=== PATIENT | male | born 1960 | race Caucasian/White ===

== ENCOUNTER 2018-06-12 15:38 | Inpatient (IN) ==
--- NOTE | 2018-06-12 16:51 | Emergency Department Note ---
Disposition Clinical Impression: Urinary retention, Paresthesia Leg weakness Qualifiers: Laterality: bilateral Qualified Code(s): R29.898 - Other symptoms and signs involving the musculoskeletal system Disposition: Still a Patient Referrals: Richi Vergara MD [Family Provider] - Sadia Strong CNP [Primary Care Provider] - Forms: ED Satisfaction Letter General Adult HPI - General Chief complaint: ED Dizziness Stated complaint: Unable to walk very well,frequent falls Time Seen by Provider: 06/12/18 16:02 Source: patient Mode of arrival: EMS Limitations: physical limitation Nursing Notes Reviewed: Yes Vital Signs Reviewed: Yes - History of Present Illness HPI Narrative: Patient is a 58-year-old male who presents to [facility] ED with a chief complaint of lower extremity weakness worsening over the last 2 weeks. Patient states he previously had a right-sided headache that would radiate down his neck and into her shoulder blade on the right. States he was evaluated by neurology last month and had an MRI of the head performed which was unremarkable. However over the last few weeks, his legs have started to feel more heavy and he has been very weak and unsteady with walking. States he feels like his legs are extremely heavy almost as if he is unable to lift them anymore. He has also described a change in his sensation in the saddle region as well as in his feet. States over the last 2 days, he has also had some urinary retention like he wants to go urinate but is unable to and when he does , he cannot get it fully out. Patient denies ever having any back pain. However when questioned about whether or not he leans forward on shopping carts in order to decrease the pressure in his back, he states that he does that all the time. States he has also had intermittent issues with pain in the hips and occasional shooting pain down the back of his right leg. Patient states 2 years ago, he did have one traumatic incident where he had a fracture in his spine. However no recent trauma. Onset (ago): week(s) (2) Location: lower extremity Pain Scale: 9 Quality: other (heavy) Consistency: constant, Worsening Improves with: nothing Worsens with: nothing Associated symptoms: Reports: headaches, weakness. Denies: chest pain, cough, fever/chills, nausea/vomiting Treatments Prior to Arrival: none - Related Data Allergies Allergy/AdvReac Type Severity Reaction Status Date / Time No Known Allergies Allergy Verified 06/12/18 15:52 All systems ED: reviewed and negative except as stated. Past Medical History - Past Medical History Attestation: Yes The following information was validated with the patient. Source: patient Medical history: Reports: diabetes, hypertension Psychiatric history: Reports: no psych history - Social History Smoking Status: Never smoker Smokeless Tobacco Status: No Alcohol use: Reports: none Drug use: Reports: none Physical Exam - General Limitations: physical limitation General appearance: alert, in no apparent distress - Head Head exam: atraumatic, normocephalic, normal inspection - Eye Eye exam: Present: EOMI - ENT ENT exam: normal exam, normal oropharynx, mucous membranes moist - Neck Neck exam: Present: normal inspection, full ROM, trachea midline - Chest Chest inspection: Present: normal inspection, symmetric chest wall rise - Respiratory Respiratory exam: Present: normal lung sounds bilaterally - Cardiovascular Cardiovascular exam: Present: regular rate, normal rhythm - Abdominal Exam Abdominal exam: Present: soft, Non-Tender. Absent: tenderness, distention, guarding, rebound, rigidity - Extremities Exam Extremities exam: Present: normal inspection, full ROM. Absent: tenderness, pedal edema - Back Exam Back exam: Present: normal inspection, paraspinal tenderness (upper thoracic R trapezius). Absent: vertebral tenderness - Neurological Exam Neurological exam: Present: alert, oriented X3, CN II-XII intact - Expanded Neurological Exam Patient oriented to: Present: person, place, time Speech: Present: fluid speech Motor strength - LUE: 3/5 Motor strength - RUE: 3/5 Motor strength - LLE: 3/5 Motor strength - RLE: 3/5 Sensory exam upper extremity: light touch: Normal Sensory exam lower extremity: light touch: Abnormal Left, Abnormal Right ( saddle distribution) Spinal cord function: Present: saddle anesthesia Coma Scale Eye Opening: Spontaneous Coma Scale Motor Response: Obeys Commands Coma Scale Verbal Response: Oriented Coma Scale Total: 15 - Psychiatric Psychiatric exam: Present: normal affect, normal mood - Skin Skin exam: Present: warm, dry, intact, normal color Course Course Narrative: Patient seen and examined. Lower extremity weakness of the last 2 weeks with difficulty walking. Upon my examination, he does have extreme weakness of his lower extremities. Also has saddle anesthesia. Described difficulty with urinating that started last night. Concern for spinal cord compression/ cervical myelopathy. Per Dr. Escobar, would like MRI of the cervical, thoracic, lumbar spine performed. These of been ordered. We will also get basic lab work if patient needs to go to the operating room. - Reevaluation(s) Reevaluation #1: Patient pending MRIs. Signed out to night physicians Dr. Weems and Dr. Abraham. Time: 19:00 Vital Signs Temperature 98.1 F 06/12/18 15:49 Pulse Rate 89 06/12/18 15:49 Respiratory Rate 16 06/12/18 15:49 Blood Pressure 151/91 06/12/18 15:49 O2 Sat by Pulse Oximetry 97 06/12/18 15:49 Temperature 98.1 F 06/12/18 15:56 Pulse Rate 88 06/12/18 19:42 Respiratory Rate 15 06/12/18 19:42 Blood Pressure 152/100 06/12/18 19:42 O2 Sat by Pulse Oximetry 98 06/12/18 19:42 Oxygen Delivery Oxygen Delivery Room Air Medical Decision Making - Medical Records Medical records reviewed: Yes I reviewed the patient's medical records. - Lab Data Lab results reviewed: Yes I reviewed the patient's lab results. Result diagrams: 06/12/18 16:44 06/12/18 16:44 Lab Results 06/12/18 06/12/18 06/12/18 Range/Units 16:44 16:44 16:44 WBC 8.6 (4.3-11.1) K/mcL RBC 4.78 (4.19-5.50) M/mcL Hgb 15.3 (12.9-16.9) g/dL Hct 44.6 (37.5-50.1) % MCV 93.3 (83.0-100.0) fL MCH 32.0 (28.0-33.3) pg MCHC 34.3 (31.6-35.5) g/dL RDW 12.1 (11.5-14.5) % Plt Count 258 (140-400) K/mcL MPV 9.7 (9.4-12.4) fL Immature Gran % 0.4 (0-4) % Seg Neutrophils % 69.7 % Lymphocytes % 20.7 % Monocytes % 7.1 % Eosinophils % 1.9 % Basophils % 0.2 % Neutrophils # 6.0 (1.6-8.9) K/mcL Lymphocytes # 1.8 (0.6-4.6) K/mcL Monocytes # 0.6 (0.0-1.3) K/mcL Eosinophils # 0.2 (0.0-0.6) K/mcL Basophils # 0.0 (0.0-0.2) K/mcL PT 11.2 (9.4-12.1) Seconds INR 1.0 APTT 27.3 (26.0-36.0) Seconds Sodium 138 (136-145) mEq/L Potassium 3.8 (3.5-5.1) mEq/L Chloride 104 (98-107) mEq/L Carbon Dioxide 29 (23-29) mEq/L BUN 11 (6-20) mg/dL Creatinine 0.84 (0.70-1.30) mg/dL Est GFR ( Amer) > 60 (> 60) Est GFR (Non-Af Amer) > 60 (> 60) BUN/Creatinine Ratio 13 (6-26) Glucose 162 H (70-105) mg/dL Calculated Osmolality 289 (280-300) Calcium 10.0 (8.6-10.3) mg/dL
--- NOTE | 2018-06-12 16:52 | Emergency Department Note ---
Disposition Clinical Impression: Leg weakness, Urinary retention, Paresthesia Disposition: Still a Patient Referrals: Richi Vergara MD [Family Provider] - Sadia Strong CNP [Primary Care Provider] - Forms: ED Satisfaction Letter General Adult HPI - General Chief complaint: ED Dizziness Stated complaint: Unable to walk very well,frequent falls Time Seen by Provider: 06/12/18 16:02 Source: patient Limitations: physical limitation - History of Present Illness Pain Scale: 9 - Related Data Allergies Allergy/AdvReac Type Severity Reaction Status Date / Time No Known Allergies Allergy Verified 06/12/18 15:52 Past Medical History - Past Medical History Medical history: Reports: diabetes, hypertension Psychiatric history: Reports: no psych history - Social History Smoking Status: Never smoker Smokeless Tobacco Status: No Alcohol use: Reports: none Drug use: Reports: none Physical Exam - General Limitations: physical limitation General appearance: alert, in no apparent distress Course Vital Signs Temperature 98.1 F 06/12/18 15:49 Pulse Rate 89 06/12/18 15:49 Respiratory Rate 16 06/12/18 15:49 Blood Pressure 151/91 06/12/18 15:49 O2 Sat by Pulse Oximetry 97 06/12/18 15:49 Temperature 98.1 F 06/12/18 15:56 Pulse Rate 89 06/12/18 15:56 Respiratory Rate 16 06/12/18 15:56 Blood Pressure 151/91 06/12/18 15:56 O2 Sat by Pulse Oximetry 97 06/12/18 15:56 Oxygen Delivery Oxygen Delivery Room Air Medical Decision Making - Lab Data Result diagrams: 06/12/18 16:44 Lab Results 06/12/18 06/12/18 Range/Units 16:44 16:44 WBC 8.6 (4.3-11.1) K/mcL RBC 4.78 (4.19-5.50) M/mcL Hgb 15.3 (12.9-16.9) g/dL Hct 44.6 (37.5-50.1) % MCV 93.3 (83.0-100.0) fL MCH 32.0 (28.0-33.3) pg MCHC 34.3 (31.6-35.5) g/dL RDW 12.1 (11.5-14.5) % Plt Count 258 (140-400) K/mcL MPV 9.7 (9.4-12.4) fL Immature Gran % 0.4 (0-4) % Seg Neutrophils % 69.7 % Lymphocytes % 20.7 % Monocytes % 7.1 % Eosinophils % 1.9 % Basophils % 0.2 % Neutrophils # 6.0 (1.6-8.9) K/mcL Lymphocytes # 1.8 (0.6-4.6) K/mcL Monocytes # 0.6 (0.0-1.3) K/mcL Eosinophils # 0.2 (0.0-0.6) K/mcL Basophils # 0.0 (0.0-0.2) K/mcL PT 11.2 (9.4-12.1) Seconds INR 1.0 APTT 27.3 (26.0-36.0) Seconds Attestation Statement - Attestation Attestation: I examined this patient and my medical decision-making was reviewed with the Resident Physician. I agree with the documented findings, disposition and treatment plan as described except to the extent set forth below. 58-year-old male in presented to the ER for lower extremity weakness. States over 2 weeks he is developing increasing lower extremity weakness with some numbness around the perineal region specifically to the scrotal area back towards the rectum. He is also having some numbness feelings to the inner aspects of the thighs. He is also admitting to urinary retention. He is having problems with ambulation. He denies trauma. No fevers. He does not use IV drugs. Raymon November he was been having neck pain on the right side since November. No history of spinal problems in the past. We will need to do an MRI of the CT LS spine. Concerns for cord compression. dispo pending.
[2018-06-12 17:11] LABS: Basophils % 0.2 %; Eosinophils # 0.2 K/mcL (0.0-0.6); Eosinophils % 1.9 %; Hematocrit 44.6 % (37.5-50.1); Hemoglobin 15.3 g/dL (12.9-16.9); Immature Granulocytes % 0.4 % (0-4); Lymphocytes # 1.8 K/mcL (0.6-4.6); Lymphocytes % 20.7 %; Mean Corpuscular HGB Conc 34.3 g/dL (31.6-35.5); Mean Corpuscular Volume 93.3 fL (83.0-100.0); Mean Platelet Volume 9.7 fL (9.4-12.4); Monocytes # 0.6 K/mcL (0.0-1.3); Monocytes % 7.1 %; Platelet Count 258 K/mcL (140-400); Red Blood Count 4.78 M/mcL (4.19-5.50); Red Cell Distribution Width 12.1 % (11.5-14.5); Segmented Neutrophils % 69.7 %
[2018-06-12 17:17] LABS: Prothrombin Time 11.2 Seconds (9.4-12.1)
[2018-06-12 17:20] LABS: Activated Partial Thrombo Time 27.3 Seconds (26.0-36.0)
--- NOTE | 2018-06-12 19:15 | Emergency Department Note ---
Disposition Clinical Impression: Urinary retention, Paresthesia, Cord compression Leg weakness Qualifiers: Laterality: bilateral Qualified Code(s): R29.898 - Other symptoms and signs involving the musculoskeletal system Disposition: Admitted As Inpatient Condition: Good Referrals: Richi Vergara MD [Family Provider] - Sadia Strong CNP [Primary Care Provider] - Forms: ED Satisfaction Letter Time of Disposition: 21:39 General Adult HPI - General Chief complaint: ED Dizziness Stated complaint: Unable to walk very well,frequent falls Time Seen by Provider: 06/12/18 16:02 Source: patient Mode of arrival: EMS Limitations: physical limitation Nursing Notes Reviewed: Yes Vital Signs Reviewed: Yes - History of Present Illness HPI Narrative: Patient was signed out to me by Dr. Slade and Dr. Gilmore pending workup and final disposition. Please see their note for further details. Location: lower extremity Pain Scale: 9 Quality: other (heavy) Improves with: nothing Worsens with: nothing Associated symptoms: Reports: headaches, weakness. Denies: chest pain, cough, fever/chills, nausea/vomiting Treatments Prior to Arrival: none - Related Data Allergies Allergy/AdvReac Type Severity Reaction Status Date / Time No Known Allergies Allergy Verified 06/12/18 15:52 Past Medical History - Past Medical History Medical history: Reports: diabetes, hypertension Psychiatric history: Reports: no psych history - Social History Smoking Status: Never smoker Smokeless Tobacco Status: No Alcohol use: Reports: none Drug use: Reports: none Physical Exam - General Limitations: physical limitation General appearance: alert, in no apparent distress Course Course Narrative: Patient was signed out to me by Dr. Slade and Dr. Gilmore pending workup and final disposition. Please see their note for further details. Marc is a 58-year-old male who presents with lower extremity weakness worse over the past 2 weeks. He was sent here by his neurologist for MRI imaging. He describes heaviness in his legs and unable to lift them. She describes symptoms concerning for cauda equina including some anesthesia around the groin region and lower extremities. He is also complaining of urinary symptoms. MRI imaging was performed by daytime physicians including laboratory evaluation. Review of images of MRI does show some loss of signal of the spinal cord at T10 concerning for cord compression. Patient is experiencing symptoms concerning for cauda equina. On examination he has hyperreflexia on examination. Patient will likely require spine ortho referral. Cervical Spine MRI 06/12/18 16:41 IMPRESSION: Mild anterolisthesis at C7-T1. Mild central canal stenosis at C6-7 due to broad disc osteophyte complex. Both foramina are severely stenotic at this level. Moderate foraminal stenosis at C3-4 and C5-6. D/ / 06/12/2018 19:38:50 Bi Daley MD / [facility] Interpreting Provider: Bi Daley MD Lumbar Spine MRI 06/12/18 16:41 IMPRESSION: Old wedge deformity of the L1 vertebral body. Moderate central canal stenosis and right foraminal stenosis at L2-L3 due to broad disc osteophyte complex and facet disease. Moderate bilateral foraminal stenosis at L4-L5 greater on the right. There is fluid distension of both facet joints. Mild bilateral foraminal stenosis is noted at L3-L4. D/ / 06/12/2018 19:43:01 Bi Daley MD / [facility] Interpreting Provider: Bi Daley MD Thoracic Spine MRI 06/12/18 16:41 IMPRESSION: Severe central canal stenosis at T10-11 due to broad disc osteophyte complex, facet arthropathy and ligamentum flavum hypertrophy. Moderate diffuse degenerative disc disease within the thoracic spine without evidence of focal disc protrusion. D/ / 06/12/2018 19:30:36 [facility] Provider: Bi Daley MD - Consultations Consultation #1: Spoke to the neurologist Dr. Escobar who had refer the patient here. We review the images together and he agrees this is very concerning for cord compression. Time: 20:55 Consultation #2: Consulted with spine orthopedic surgeon Dr. Elliott who agrees with current management and assessment and agrees with admission. Will admit to the hospitalist service with consultation. Recommend preoperative lab evaluation prior to admission. Given the patient's progressively worsening symptoms this is not something acute. We discussed in detail no change neurologic outcome as long as decompression is performed within 48 to 72 hours. Does not recommend any current treatment such as steroids at this time. Time: 21:39 Consultation #3: Spoke with on-call hospitalist carla Patel to admit for cord compression. No further orders at this time. Patient has a history of hypertension and takes amlodipine. He also reports prescription for metformin but does not take it. Time: 21:59 Vital Signs Temperature 98.1 F 06/12/18 15:49 Pulse Rate 89 06/12/18 15:49 Respiratory Rate 16 06/12/18 15:49 Blood Pressure 151/91 06/12/18 15:49 O2 Sat by Pulse Oximetry 97 06/12/18 15:49 Temperature 98.1 F 06/12/18 15:56 Pulse Rate 89 06/12/18 22:00 Respiratory Rate 15 06/12/18 22:00 Blood Pressure 149/89 06/12/18 22:00 O2 Sat by Pulse Oximetry 98 06/12/18 22:00 Oxygen Delivery Oxygen Delivery Room Air Medical Decision Making - MDM Narrative Medical decision making narrative: Patient was discussed with my attending physician who agrees with ED management and final disposition. They independently evaluated the patient. Please refer to their attestation to this encounter for additional information. This note was generated by [employer] voice recognition software and as a result grammatical or spelling errors may occur using this program. - Medical Records Medical records reviewed: Yes I reviewed the patient's medical records. - Lab Data Lab results reviewed: Yes I reviewed the patient's lab results. Result diagrams: 06/12/18 16:44 06/12/18 16:44 Lab Results 06/12/18 06/12/18 06/12/18 Range/Units 16:44 16:44 16:44 WBC 8.6 (4.3-11.1) K/mcL RBC 4.78 (4.19-5.50) M/mcL Hgb 15.3 (12.9-16.9) g/dL Hct 44.6 (37.5-50.1) % MCV 93.3 (83.0-100.0) fL MCH 32.0 (28.0-33.3) pg MCHC 34.3 (31.6-35.5) g/dL RDW 12.1 (11.5-14.5) % Plt Count 258 (140-400) K/mcL MPV 9.7 (9.4-12.4) fL Immature Gran % 0.4 (0-4) % Seg Neutrophils % 69.7 % Lymphocytes % 20.7 % Monocytes % 7.1 % Eosinophils % 1.9 % Basophils % 0.2 % Neutrophils # 6.0 (1.6-8.9) K/mcL Lymphocytes # 1.8 (0.6-4.6) K/mcL Monocytes # 0.6 (0.0-1.3) K/mcL Eosinophils # 0.2 (0.0-0.6) K/mcL Basophils # 0.0 (0.0-0.2) K/mcL PT 11.2 (9.4-12.1) Seconds INR 1.0 APTT 27.3 (26.0-36.0) Seconds Sodium 138 (136-145) mEq/L Potassium 3.8 (3.5-5.1) mEq/L Chloride 104 (98-107) mEq/L Carbon Dioxide 29 (23-29) mEq/L BUN 11 (6-20) mg/dL Creatinine 0.84 (0.70-1.30) mg/dL Est GFR ( Amer) > 60 (> 60) Est GFR (Non-Af Amer) > 60 (> 60) BUN/Creatinine Ratio 13 (6-26) Glucose 162 H (70-105) mg/dL Calculated Osmolality 289 (280-300) Calcium 10.0 (8.6-10.3) mg/dL - Radiology Data Radiology results reviewed: Yes I reviewed the patient's radiology results. Cervical Spine MRI 06/12/18 16:41 IMPRESSION: Mild anterolisthesis at C7-T1. Mild central canal stenosis at C6-7 due to broad disc osteophyte complex. Both foramina are severely stenotic at this level. Moderate foraminal stenosis at C3-4 and C5-6. D/ / 06/12/2018 19:38:50 Bi Daley MD / [facility] Interpreting Provider: Bi Daley MD Lumbar Spine MRI 06/12/18 16:41 IMPRESSION: Old wedge deformity of the L1 vertebral body. Moderate central canal stenosis and right foraminal stenosis at L2-L3 due to broad disc osteophyte complex and facet disease. Moderate bilateral foraminal stenosis at L4-L5 greater on the right. There is fluid distension of both facet joints. Mild bilateral foraminal stenosis is noted at L3-L4. D/ / 06/12/2018 19:43:01 Bi Daley MD / [facility] Interpreting Provider: Bi Daley MD Thoracic Spine MRI 06/12/18 16:41 IMPRESSION: Severe central canal stenosis at T10-11 due to broad disc osteophyte complex, facet arthropathy and ligamentum flavum hypertrophy. Moderate diffuse degenerative disc disease within the thoracic spine without evidence of focal disc protrusion. D/ / 06/12/2018 19:30:36 Bi Daley MD / [facility] Interpreting Provider: Bi Daley MD - EKG Data EKG #1 EKG attestation: Yes I reviewed and interpreted this EKG. EKG results narrative: EKG performed 2200 normal sinus rhythm 84 beats per minute, normal axis, good R wave progression, intervals within normal limits, no ST elevation or depression. Compared to prior EKG performed 06/10/2007 shows similar consistent findings of sinus bradycardia 59 beats per minute.
[2018-06-12 19:32] LABS: BUN/Creatinine Ratio 13 (6-26); Blood Urea Nitrogen 11 mg/dL (6-20); Carbon Dioxide 29 mEq/L (23-29); Chloride 104 mEq/L (98-107); Glucose 162 mg/dL (70-105); Osmolality,Calculated 289 (280-300); Potassium 3.8 mEq/L (3.5-5.1); Sodium 138 mEq/L (136-145); eGFR For Non-African Americans > 60 (> 60)
[2018-06-12] MEDS ORDERED: *HR* HYDROcodone/Acet 10/325 mg TABLET PO ONE (22:00)
--- NOTE | 2018-06-12 22:56 | Emergency Department Note ---
Disposition Clinical Impression: Urinary retention, Paresthesia, Cord compression Leg weakness Qualifiers: Laterality: bilateral Qualified Code(s): R29.898 - Other symptoms and signs involving the musculoskeletal system Disposition: Admitted As Inpatient Condition: Fair General Adult HPI - General Chief complaint: ED Dizziness Stated complaint: Unable to walk very well,frequent falls Time Seen by Provider: 06/12/18 16:02 Source: patient Mode of arrival: EMS Limitations: physical limitation Nursing Notes Reviewed: Yes Vital Signs Reviewed: Yes - History of Present Illness Location: lower extremity Pain Scale: 9 Quality: other (heavy) Improves with: nothing Worsens with: nothing Associated symptoms: Reports: headaches, weakness. Denies: chest pain, cough, fever/chills, nausea/vomiting Treatments Prior to Arrival: none - Related Data Home Medications Medication Instructions Recorded Confirmed Amlodipine Besylate/Benazepril 1 cap PO DAILY 06/12/18 06/12/18 [Lotrel 10-20 mg Capsule] Cyclobenzaprine [Flexeril] 5 - 10 mg PO BID PRN 06/12/18 06/12/18 HYDROcodone/Acet 5/325 mg [[place] 1 tab PO Q8H PRN 06/12/18 06/12/18 5-325 mg] Loratadine [Claritin] 10 mg PO DAILY 06/12/18 06/12/18 Naproxen 500 mg PO BID 06/12/18 06/12/18 Allergies Allergy/AdvReac Type Severity Reaction Status Date / Time No Known Allergies Allergy Verified 06/12/18 22:20 Past Medical History - Past Medical History Medical history: Reports: diabetes, hypertension Psychiatric history: Reports: no psych history - Social History Smoking Status: Never smoker Smokeless Tobacco Status: No Alcohol use: Reports: none Drug use: Reports: none Physical Exam - General Limitations: physical limitation General appearance: alert, in no apparent distress Course Vital Signs Temperature 98.1 F 06/12/18 15:49 Pulse Rate 89 06/12/18 15:49 Respiratory Rate 16 06/12/18 15:49 Blood Pressure 151/91 06/12/18 15:49 O2 Sat by Pulse Oximetry 97 06/12/18 15:49 Temperature 98.1 F 06/12/18 15:56 Pulse Rate 89 06/12/18 22:00 Respiratory Rate 15 06/12/18 22:00 Blood Pressure 149/89 06/12/18 22:00 O2 Sat by Pulse Oximetry 98 06/12/18 22:00 Oxygen Delivery Oxygen Delivery Room Air Medical Decision Making - Medical Records Medical records reviewed: Yes I reviewed the patient's medical records. - Lab Data Lab results reviewed: Yes I reviewed the patient's lab results. Result diagrams: 06/12/18 16:44 06/12/18 16:44 Lab Results 06/12/18 06/12/18 06/12/18 Range/Units 16:44 16:44 16:44 WBC 8.6 (4.3-11.1) K/mcL RBC 4.78 (4.19-5.50) M/mcL Hgb 15.3 (12.9-16.9) g/dL Hct 44.6 (37.5-50.1) % MCV 93.3 (83.0-100.0) fL MCH 32.0 (28.0-33.3) pg MCHC 34.3 (31.6-35.5) g/dL RDW 12.1 (11.5-14.5) % Plt Count 258 (140-400) K/mcL MPV 9.7 (9.4-12.4) fL Immature Gran % 0.4 (0-4) % Seg Neutrophils % 69.7 % Lymphocytes % 20.7 % Monocytes % 7.1 % Eosinophils % 1.9 % Basophils % 0.2 % Neutrophils # 6.0 (1.6-8.9) K/mcL Lymphocytes # 1.8 (0.6-4.6) K/mcL Monocytes # 0.6 (0.0-1.3) K/mcL Eosinophils # 0.2 (0.0-0.6) K/mcL Basophils # 0.0 (0.0-0.2) K/mcL PT 11.2 (9.4-12.1) Seconds INR 1.0 APTT 27.3 (26.0-36.0) Seconds Sodium 138 (136-145) mEq/L Potassium 3.8 (3.5-5.1) mEq/L Chloride 104 (98-107) mEq/L Carbon Dioxide 29 (23-29) mEq/L BUN 11 (6-20) mg/dL Creatinine 0.84 (0.70-1.30) mg/dL Est GFR ( Amer) > 60 (> 60) Est GFR (Non-Af Amer) > 60 (> 60) BUN/Creatinine Ratio 13 (6-26) Glucose 162 H (70-105) mg/dL Calculated Osmolality 289 (280-300) Calcium 10.0 (8.6-10.3) mg/dL - Radiology Data Radiology results reviewed: Yes I reviewed the patient's radiology results. Cervical Spine MRI 06/12/18 16:41 IMPRESSION: Mild anterolisthesis at C7-T1. Mild central canal stenosis at C6-7 due to broad disc osteophyte complex. Both foramina are severely stenotic at this level. Moderate foraminal stenosis at C3-4 and C5-6. D/ / 06/12/2018 19:38:50 Bi Daley MD / [facility] Interpreting Provider: Bi Daley MD Lumbar Spine MRI 06/12/18 16:41 IMPRESSION: Old wedge deformity of the L1 vertebral body. Moderate central canal stenosis and right foraminal stenosis at L2-L3 due to broad disc osteophyte complex and facet disease. Moderate bilateral foraminal stenosis at L4-L5 greater on the right. There is fluid distension of both facet joints. Mild bilateral foraminal stenosis is noted at L3-L4. D/ / 06/12/2018 19:43:01 Bi Daley MD / [facility] Interpreting Provider: Bi Daley MD Thoracic Spine MRI 06/12/18 16:41 IMPRESSION: Severe central canal stenosis at T10-11 due to broad disc osteophyte complex, facet arthropathy and ligamentum flavum hypertrophy. Moderate diffuse degenerative disc disease within the thoracic spine without evidence of focal disc protrusion. D/ / 06/12/2018 19:30:36 Bi Daley MD / [facility] Interpreting Provider: Bi Daley MD Chest X-Ray 06/12/18 21:34 IMPRESSION: Normal. No acute findings. D/ / Fam Leal / Fam Leal Interpreting Provider: Fam Leal - EKG Data EKG #1 EKG attestation: Yes I reviewed and interpreted this EKG. EKG results narrative: EKG shows a normal sinus rhythm with ventricular rate of 84. No acute ST segment elevation or depression. No arrhythmia or ectopy. Normal EKG. Critical Care Time Critical Care Time: Yes Total Critical Care Time: 35 Attestation: Critical care performed: Time is exclusive of separately billable procedures. Time includes: direct patient care, patient reassessment, coordination of patient care, interpretation of data (laboratory data, radiology data, and respiratory data), review of patient's medical records, medical consultation and documentation of patient care. Procedures included in critical care time: Procedures excluded from critical care time: Attestation Statement - Attestation Attestation: I, Jorge Abraham MD, personally evaluated this patient and discussed their management with the resident physician. I reviewed the resident's note and agree with the documented findings, medical decision making, and plan of care. This patient was signed out at shift change from Dr. Gilmore and Dr. Slade. Please refer to their notes for complete details of history and physical examination. Patient is a 58-year-old male who was referred here from neurology clinic where he was being evaluated for increasing difficulty walking over the past several weeks. He denies any back pain or injury. He does complain of increasing numbness to the medial thighs and perineal area. He has had difficulty with urination and states his bladder is not emptying and he is going frequently. No incontinence or retention. No incontinence of stool. No fever. Patient states the symptoms are getting progressively worse daily. He was referred here for MR scans of his spine which were obtained and revealed severe central canal narrowing at T10-11. On examination patient is a well-developed obese male in no acute distress. He is alert and oriented 3. There is no cyanosis or diaphoresis. Breath sounds are clear and equal bilaterally. Heart regular rate and rhythm. Abdomen is soft and nontender with normal bowel sounds. Good range of motion of all 4 extremities with no gross focal motor deficits. Some decreased sensation over the medial thighs. Labs and imaging reviewed. EKG normal. Patient discussed with the neurologist, Dr. Escobar. He recommended admission. Case discussed with the spine surgeon, Dr. Elliott. He recommended admission to the medical service with preoperative workup will consult on the patient. He felt the patient would need surgery within the next few days. The hospitalist, Dr. Henao, was consulted and accepted admission of the patient.
[2018-06-13] MEDS ORDERED: Acetaminophen 325 MG TABLET PO PRN (03:04)
[2018-06-13] MEDS ORDERED: *HR* HYDROcodone/Acet 5/325 mg TABLET PO PRN (03:04)
[2018-06-13] MEDS ORDERED: Naloxone 0.4 MG/ML INJ IVP PRN (03:04)
[2018-06-13] MEDS: *HR* OxyCODONE Immed Rel 5 MG TABLET PO PRN ×3 (03:22→21:30)
--- NOTE | 2018-06-13 04:34 | Internal Med History&Physical ---
Date of Encounter: 06/12/18 Time of Encounter: 23:30 Internal Medicine - H&P: HPI Chief complaint: Spinal stenosis Admitted From: Emergency Dept Plans for Post Hospital Care: Home History of present illness: Mr. Irene is a 58 year old male Patient states that back in November he started having neck pain. At that time he was treated for multiple sinus infections but never improved. Around November of this year he noticed his right foot started to feel numb and it slowly progressed up his leg. Now he has numbness in both of his legs. He went to a neurologist today who advised him to come to the emergency room for further evaluation. Of note, he states he has had 4 falls over the last 5 days. He says that he feels like his knees will just give out and then he will go down. In the emergency room cervical MRI showed mild central canal stenosis at C6 and 7, with both foramina severely stenotic. His lumbar MRI showed moderate stenosis of the central canal L2-L3 due to broad disc complex and moderate stenosis of L4 and L5 greater on the right. His thoracic MRI showed severe central canal stenosis at T10 and 11. Chest x-ray showed no acute abnormalities CBC and BMP were noncontributory. Dr. Elliott of orthopedic surgery was called, and will consult on the patient in the morning. Currently patient has no complaints, denies nausea and vomiting, diarrhea, constipation, chest pain, dull pain, vision changes. He has had some urine retention likely feels like he cannot fully empty his bladder this been going on for about 1 week now. Past Med Surg Social Fam HX - Past Medical History Medical history: diabetes, hypertension Psychiatric history: no psych history - Past Surgical History Surgical History: knee replacement - Social History Smoking Status: Never smoker Smokeless Tobacco Status: No Alcohol use: none Drug use: none Internal Medicine - H&P: Meds Amlodipine Besylate/Benazepril [Lotrel 10-20 mg Capsule] 1 cap PO DAILY [History] Cyclobenzaprine [Flexeril] 5 - 10 mg PO BID PRN 06/12/18 [History] HYDROcodone/Acet 5/325 mg [[place] 5-325 mg] 1 tab PO Q8H PRN 06/12/18 [History] Loratadine [Claritin] 10 mg PO DAILY 06/12/18 [History] Naproxen 500 mg PO BID 06/12/18 [History] 3 Allergy/AdvReac Type Severity Reaction Status Date / Time No Known Allergies Allergy Verified 06/12/18 22:20 All Systems PM: A 10-system review of systems was performed and is negative for pertinent findings except as documented above in the HPI. - Constitutional Vitals: Temp Pulse Resp BP Pulse Ox 97.7 F 72 18 157/92 96 06/13/18 03:16 06/13/18 03:16 06/13/18 03:16 06/13/18 03:16 06/13/18 03:16 General appearance: Present: cooperative, A&O X 3, pleasant, no acute distress, answers questions appropriately Exam: As above - Head Head exam: Present: normal inspection - Eye Eye exam: Present: EOMI, normal appearance - Neck Additional comments: Stiffness with rotation. Palpation of the lower neck on the right demonstrated some tenderness. - Respiratory Respiratory exam: Present: CTAB. Absent: chest wall tenderness, decreased breath sounds, respiratory distress, wheezes - Cardiovascular Cardiovascular exam: Present: RRR. Absent: diastolic murmur, systolic murmur - GI/Abdominal GI/Abdominal exam: Present: normal bowel sounds, soft. Absent: tenderness - Extremities Exam Extremities exam: Present: warm, radial pulses palpable and symmetrical. Absent : calf tenderness, pedal edema, tenderness - Neurological Exam Neurological exam: Present: no focal deficits, strengths equal and symetr throughout. Absent: motor sensory deficit, facial droop, speech deficit - Skin Skin exam: Present: dry, normal color, warm Internal Med - H&P Results - Labs CBC & Chem 7: 06/12/18 16:44 06/12/18 16:44 - Assessment and plan (1) Cord compression Current Visit: Yes Status: Acute Assessment and plan: As evidenced by spinal MRIs. Dr. Elliott consulted of orthopedic spine surgery. Follow-up recommendations from Dr. Elliott Possible procedure during this hospitalization Continue to monitor for further worsening signs of paresthesia (2) Paresthesia Current Visit: Yes Status: Acute Assessment and plan: As above secondary to cord compression (3) Urinary retention Current Visit: Yes Status: Acute Assessment and plan: Could be related to cord compression, though urinary incontinence would be more suspected. To monitor Consider bladder scan and straight catheter if patient not voiding - Time Spent With Patient Total time spent is greater than 50% in coordination of care (as documented) at patient's floor/unit and/or counseling patient: Greater than 35 minutes
[2018-06-13 05:46] LABS: Hematocrit 43.3 % (37.5-50.1); Mean Corpuscular HGB Conc 34.6 g/dL (31.6-35.5); Mean Corpuscular Hemoglobin 32.8 pg (28.0-33.3); Mean Corpuscular Volume 94.5 fL (83.0-100.0); Mean Platelet Volume 9.9 fL (9.4-12.4); Platelet Count 239 K/mcL (140-400); Red Blood Count 4.58 M/mcL (4.19-5.50)
[2018-06-13 05:51] LABS: INR 1.1; Prothrombin Time 12.3 Seconds (9.4-12.1)
[2018-06-13 06:01] LABS: BUN/Creatinine Ratio 13 (6-26); Blood Urea Nitrogen 11 mg/dL (6-20); Calcium 9.5 mg/dL (8.6-10.3); Carbon Dioxide 27 mEq/L (23-29); Chloride 105 mEq/L (98-107); Glucose 151 mg/dL (70-105); Osmolality,Calculated 288 (280-300); Sodium 138 mEq/L (136-145); eGFR For Non-African Americans > 60 (> 60)
[2018-06-13] MEDS ORDERED: *HR* Labetalol 20 MG/4 ML SYRINGE IVP PRN (08:11)
--- NOTE | 2018-06-13 11:54 | Internal Med Progress Note ---
Hospitalist Progress Note - Encounter Date of Encounter: 06/13/18 Time of Encounter: 10:40 - Subjective Interval History: H&P reviewed. His symptoms in November with neck pain which progressed to lower limb weakness and numbness. MRI yesterday showed multilevel degenerative changes with severe spinal canal stenosis at T10-11. States that he was evaluated by spine surgeon this morning and is being planned for surgery tomorrow. - Exam Vitals: Temp Pulse Resp BP Pulse Ox 97.9 F 86 16 127/68 98 06/13/18 06:59 06/13/18 06:59 06/13/18 06:59 06/13/18 06:59 06/13/18 06:59 Exam: General: Alert and oriented, not in acute distress. HEENT:EOM, pupils equal, round and reactive. Cardiovascular:Normal S1 & S2, No JVD. Pulse regular. Lungs: clear to auscultation, no wheezes/rales Abdomen:Soft, non-tender, no rigidity. Extremities:No deformity or swelling Neurological: CN II-XII intact, subjective weakness of R LE but otherwise 5/5 in power in other limbs. Paresthesia over L2-4 dermatomes noted on R LE. - Assessment and Plan (1) Central stenosis of spinal canal Current Visit: Yes Status: Acute Assessment and Plan: MRI shows multilevel degenerative change with severe spinal canal stenosis at T10/11 patient states that he met with spine surgeon this AM and is being planned for op tomorrow. analgesics as prescribed (2) Diabetes Current Visit: Yes Status: Acute Assessment and Plan: not on meds at home, no A1c on file ADA diet accuchecks AC+HS Low dose sliding scale coverage check A1c tomorrow (3) Hypertension Current Visit: Yes Status: Acute Assessment and Plan: resume home meds PRN labetalol (4) DVT prophylaxis Current Visit: Yes Status: Acute Assessment and Plan: SCD - Time Spent with Patient Total time spent is greater than 50% in coordination of care (as documented) at patient's floor/unit and/or counseling patient: Plan of Care Discussed with: patient Internal Medicine: Result - Labs CBC & Chem 7: 06/13/18 05:27 06/13/18 05:27 Labs: Short CBC 06/13/18 Range/Units 05:27 WBC 7.2 (4.3-11.1) K/mcL Hgb 15.0 (12.9-16.9) g/dL Hct 43.3 (37.5-50.1) % Plt Count 239 (140-400) K/mcL BMP 06/13/18 05:27 Sodium 138 Potassium 4.0 Chloride 105 Carbon Dioxide 27 BUN 11 Creatinine 0.87 Glucose 151 H Calcium 9.5 - ABG Interpretation ABG results: PT/INR, D-dimer PT 12.3 Seconds (9.4-12.1) H 06/13/18 05:27 Consult Discharge Plan - Plan Referrals: Sadia Strong, QUALITY CONTROL REPRESENTATIVE [Primary Care Provider] - Vergara,Richi Gunderson MD [Family Provider] - (2) Diabetes Qualifiers: Diabetes mellitus type: type 2 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
[2018-06-13] MEDS ORDERED: D5% in Water 1,000 ML IVC PRN (11:56)
[2018-06-13] MEDS ORDERED: Dextrose Gel 15 GM/37.5 ML TUBE PO PRN ×2 (11:56)
[2018-06-13] MEDS ORDERED: *HR* Dextrose 50 % in Water (Syg) 50 ML SYRINGE IVP PRN (11:56)
[2018-06-13] MEDS ORDERED: NON-FORMULARY MEDICATION 1 EACH EACH (Amlodipine Besylate/Benazepril [Lotrel 10-20 Mg Caps PO SCH (11:57)
[2018-06-13] MEDS: Lisinopril 20 MG TABLET PO SCH (14:00)
[2018-06-13] MEDS: amLODIPine 5 MG TABLET PO SCH (14:00)
--- NOTE | 2018-06-13 15:47 | Electrocardiograph Report ---
[address] [address] Test Date: 2018-06-12 Pat Name: Marc Irene Department: EXAMC1 Room: [facility] Gender: M Telephone Sales Representative: : 1960 Requested By: Chandan Weems Order Number: [id number] Reading MD: Keyana Yuan Measurements Intervals [place] Rate: 84 P: 46 MS: 184 QRS: 78 QRSD: 102 T: 59 QT: 372 QTc: 440 Interpretive Statements Sinus rhythm Electronically Signed On 06-13-2018 15:45:38 EDT by Keyana Yuan
[2018-06-13] MEDS: Insulin LISPRO 300 UNITS/3 ML VIAL SQ SCH (17:35)
--- NOTE | 2018-06-13 20:21 | Anesthesia Evaluation PreOp ---
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 (cervical stenosis, T10-11 spinal stenosis with cord compression) Other Medical History: Diabetes Type II, Other (BMI 41) Anesthesia History: No Prior Anesthetic Complications, Past Anesthesia (bilat total knee replacement) Alcohol Use: none Drug use: none Medications and Allergies Amlodipine Besylate/Benazepril [Lotrel 10-20 mg Capsule] 1 cap PO DAILY [History] Cyclobenzaprine [Flexeril] 5 - 10 mg PO BID PRN 06/12/18 [History] HYDROcodone/Acet 5/325 mg [[place] 5-325 mg] 1 tab PO Q8H PRN 06/12/18 [History] Loratadine [Claritin] 10 mg PO DAILY 06/12/18 [History] Naproxen 500 mg PO BID 06/12/18 [History] 3 Allergy/AdvReac Type Severity Reaction Status Date / Time No Known Allergies Allergy Verified 06/12/18 22:20 - Meds/Allergy Pre-op Review Medications Reviewed: Yes Allergies Reviewed: Yes Beta Blockers on Current Med List: No Anesthesia Results - Labs 06/13/18 05:27 06/13/18 05:27 Laboratory Tests 06/12/18 06/13/18 16:44 05:27 PT 12.3 H INR 1.1 APTT 27.3 - Imaging EKG: report reviewed (Sinus rhythm Electronically Signed On 06-13-2018 15:45:38 EDT by Keyana Yuan) Anesthesia Exam Vital Signs/O2 Sat, Most Current Temp Pulse Resp BP Pulse Ox 98.3 F 80 18 145/88 98 06/13/18 14:40 06/13/18 14:40 06/13/18 14:40 06/13/18 14:40 06/13/18 14:40 Weight: 127kg NPO (# of Hours): past MN - HEENT Pupil (Motor): Pupils equal, EOMI Mallampati: III (+ ortiz, neck limited ROM secondary to pain) Teeth: Edentulous (upper) Denture Type: Upper: Complete Oral Opening: Greater than 3 - SPLINE ROLLING 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
[2018-06-13] MEDS ORDERED: Insulin LISPRO 300 UNITS/3 ML VIAL SQ SCH (21:00)
[2018-06-13] MEDS ORDERED: Lisinopril 20 MG TABLET PO ONE (21:38)
[2018-06-13] MEDS ORDERED: amLODIPine 5 MG TABLET PO ONE (21:39)
--- NOTE | 2018-06-13 22:14 | Spinal Consult Note ---
Date of Encounter: 06/13/18 Time of Encounter: 07:45 Assessment and Plan (1) Thoracic spinal stenosis Current Visit: Yes Status: Chronic On exam he is lying in bed in some distress secondary to back pain and numbness in the lower extremities. Afebrile vital signs stable. He has weakness in the bilateral lower extremities notable in the quads, hamstrings, and bilateral dorsiflexors. He has no clonus. His hips move symmetrically. He has a negative Sally sign. MRI exam of the thoracic spine is notable for severe stenosis at T10-11 with cord compression. MRI of the cervical and lumbar spine is notable for multilevel degenerative changes and foraminal stenosis. Impression: 1) thoracic stenosis severe 2) bilateral leg weakness 3) gait impairment Plan: Due to his progressive weakness and inability to ambulate in the setting of severe thoracic cord compression I find it reasonable to consider surgery in the form of a laminectomy T10-T11. The patient understands he will require medical optimization and clearance prior to surgical intervention. Patient had risks benefits possible complications and alternatives discussed and he would like to proceed with surgery. (2) Impaired gait Current Visit: Yes Status: Acute History of Present Illness Chief complaint: Leg weakness, difficulty walking HPI: Mr. Irene is a 58 year old male Who was admitted for gradual weakness and inability to walk in the lower extremities over the past several days. He was seen in the emergency department after referral from his neurologist Dr. Schwarz in the office setting. There was concern for his progressive weakness and he had abnormal MRI findings which prompted emergency department referral. He denies any fevers chills or photophobia or bowel bladder symptomatology. Past Med Surg Social Fam HX - Past Medical History Medical history: diabetes, hypertension Psychiatric history: no psych history - Past Surgical History Surgical History: knee replacement - Social History Smoking Status: Never smoker Smokeless Tobacco Status: No Alcohol use: none Drug use: none Medications and Allergies Amlodipine Besylate/Benazepril [Lotrel 10-20 mg Capsule] 1 cap PO DAILY [History] Cyclobenzaprine [Flexeril] 5 - 10 mg PO BID PRN 06/12/18 [History] HYDROcodone/Acet 5/325 mg [[place] 5-325 mg] 1 tab PO Q8H PRN 06/12/18 [History] Loratadine [Claritin] 10 mg PO DAILY 06/12/18 [History] Naproxen 500 mg PO BID 06/12/18 [History] 3 Allergy/AdvReac Type Severity Reaction Status Date / Time No Known Allergies Allergy Verified 06/12/18 22:20 Results - Labs Result Diagrams: 06/13/18 05:27 06/13/18 05:27 Labs: Abnormal lab results PT 12.3 Seconds (9.4-12.1) H 06/13/18 05:27 Glucose 151 mg/dL (70-105) H 06/13/18 05:27 POC Glucose 177 mg/dL (70-99) H 06/13/18 19:58 H & H 06/13/18 Range/Units 05:27 Hgb 15.0 (12.9-16.9) g/dL Hct 43.3 (37.5-50.1) % All other labs normal. Consult Discharge Plan - Plan Referrals: Richi Vergara MD [Family Provider] - Sadia Strong CNP [Primary Care Provider] -
[2018-06-14] MEDS: *HR* OxyCODONE Immed Rel 5 MG TABLET PO PRN ×2 (04:09→23:29)
[2018-06-14] MEDS: amLODIPine 5 MG TABLET PO SCH (07:36)
[2018-06-14] MEDS: Lisinopril 20 MG TABLET PO SCH (07:36)
[2018-06-14 08:03] LABS: Estimated Average Glucose 163 mg/dl; Hemoglobin A1C 7.3 %
[2018-06-14] MEDS ORDERED: *HR* OxyCODONE Immed Rel 5 MG TABLET PO PRN (08:24)
[2018-06-14] MEDS ORDERED: Loratadine 10 MG TABLET PO SCH (09:00)
[2018-06-14] MEDS: Insulin LISPRO 300 UNITS/3 ML VIAL SQ SCH ×2 (09:32→18:34)
--- NOTE | 2018-06-14 10:26 | Anesthesia Progress Note ---
Date of Encounter: 06/14/18 Time of Encounter: 12:13 Anes Supervising Prov Stmt: WORSENING NICHOLAS LE WEAKNESS AND NUMBNESS SINCE ADMISSION. SPINE MRI 06/12/18: CERVICAL Mild anterolisthesis at C7-T1. Mild central canal stenosis at C6-7 due to broad disc osteophyte complex. Both foramina are severely stenotic at this level. Moderate foraminal stenosis at C3-4 and C5-6. THORACIC Severe central canal stenosis at T10-11 due to broad disc osteophyte complex, facet arthropathy and ligamentum flavum hypertrophy. Moderate diffuse degenerative disc disease within the thoracic spine without evidence of focal disc protrusion. LUMBAR Old wedge deformity of the L1 vertebral body. Moderate central canal stenosis and right foraminal stenosis at L2-L3 due to broad disc osteophyte complex and facet disease. Moderate bilateral foraminal stenosis at L4-L5 greater on the right. There is fluid distension of both facet joints. Mild bilateral foraminal stenosis is noted at L3-L4. Active Medications Hydrocodone Bitart/Acetaminophen ([place] 5-325 Mg) 1 tab PO Q6HR PRN PRN Reason: Moderate Pain Stop: 12/13/18 03:05 Last Admin: 06/14/18 02:39 Dose: 1 tab Amlodipine Besylate (Norvasc) 10 mg PO DAILY JAVIER PRN Reason: Protocol Stop: 12/13/18 12:20 Last Admin: 06/14/18 07:36 Dose: Not Given Cyclobenzaprine HCl (Flexeril) 5 mg PO BID PRN PRN Reason: Muscle Pain Stop: 12/13/18 11:58 Last Admin: 06/13/18 21:30 Dose: 5 mg Dextrose (Dextrose 5%) 1,000 mls @ 100 mls/hr IVC .Q10H PRN PRN Reason: HYPOGLYCEMIA Stop: 12/13/18 11:57 Insulin Human Lispro (Humalog) 0 units SQ TIDAC JAVIER PRN Reason: Protocol Stop: 12/13/18 16:31 Last Admin: 06/14/18 09:32 Dose: Not Given Labetalol HCl (Labetalol) 10 mg IVP Q4H PRN PRN Reason: Hypertension Stop: 12/13/18 08:12 Lisinopril (Zestril) 20 mg PO DAILY JAVIER PRN Reason: Protocol Stop: 12/13/18 12:21 Last Admin: 06/14/18 07:36 Dose: Not Given Vital Signs/O2 Sat/Glucose, Most Recent Temp Pulse Resp BP Pulse Ox 98 F 93 16 134/86 97 06/14/18 06:34 06/14/18 06:34 06/14/18 06:34 06/14/18 06:34 06/14/18 06:34 Blood Glucose* 166 NEURO EXAM LEFT LE 4/5 MOTOR RIGHT LE 3/5 MOTOR
--- NOTE | 2018-06-14 11:01 | Internal Med Progress Note ---
Hospitalist Progress Note - Encounter Date of Encounter: 06/14/18 Time of Encounter: 09:00 - Subjective Interval History: Unchanged weakness and numbness of his legs. Denies any pain, palpitation, lightheadedness, orthopnea, PND, or LE swelling. No personal or family history CAD. Was able to climb up 2 flights of stairs without developing SOB prior to the onset of his neurological deficits. - Exam Vitals: Temp Pulse Resp BP Pulse Ox 98 F 93 16 134/86 97 06/14/18 06:34 06/14/18 06:34 06/14/18 06:34 06/14/18 06:34 06/14/18 06:34 Exam: General: Alert and oriented, not in acute distress. HEENT:EOM, pupils equal, round and reactive. Cardiovascular:Normal S1 & S2, No JVD. Pulse regular. Lungs: clear to auscultation, no wheezes/rales Abdomen:Soft, non-tender, no rigidity. Extremities:No deformity or swelling Neurological: CN II-XII intact, subjective weakness of R LE but otherwise 5/5 in power in other limbs. Paresthesia over L2-4 dermatomes noted on R LE. - Assessment and Plan (1) Central stenosis of spinal canal Current Visit: Yes Status: Acute Assessment and Plan: MRI shows multilevel degenerative change with severe spinal canal stenosis at T10/11 scheduled for op this afternoon, see below for pre-op evaluation analgesics as prescribed (2) Pre-operative cardiovascular examination Current Visit: Yes Status: Acute Assessment and Plan: No known history of CAD but does have risk factors for it including DM and HTN No signs and symptoms suggestive of ACS, malignant arrhythmia, or decompensated heart failure that need optimization RCRI 0, 0.4% risk of MACE both EKG, CXR on presentation are unremarkable no need for further testing prior to the surgery, low risk patient for intermediate risk surgery (3) Diabetes Current Visit: Yes Status: Acute Assessment and Plan: not on meds at home, A1c 7.3 ADA diet accuchecks AC+HS Low dose sliding scale coverage would recommend metformin after discharge (4) Hypertension Current Visit: Yes Status: Acute Assessment and Plan: controlled, resume home meds PRN labetalol (5) DVT prophylaxis Current Visit: Yes Status: Acute Assessment and Plan: SCD - Time Spent with Patient Total time spent is greater than 50% in coordination of care (as documented) at patient's floor/unit and/or counseling patient: Plan of Care Discussed with: patient Internal Medicine: Result - Labs CBC & Chem 7: 06/13/18 05:27 06/13/18 05:27 - ABG Interpretation ABG results: PT/INR, D-dimer PT 12.3 Seconds (9.4-12.1) H 06/13/18 05:27 Consult Discharge Plan - Plan Referrals: Richi Vergara MD [Family Provider] - Sadia Strong CNP [Primary Care Provider] - (3) Diabetes Qualifiers: Diabetes mellitus type: type 2 Diabetes mellitus group home insulin use: without group home use Diabetes mellitus complication status: with unspecified complications Qualified Code(s): E11.8 - Type 2 diabetes mellitus with unspecified complications (4) Hypertension Qualifiers: Hypertension type: essential hypertension Qualified Code(s): I10 - Essential (primary) hypertension
[2018-06-14] MEDS ORDERED: Acetaminophen IV 1,000 MG/100 ML INFUS..BTL ONE (12:36)
[2018-06-14] MEDS ORDERED: KETAMINE HCL 50 MG/ML SYRINGE IV ONE (12:36)
[2018-06-14] MEDS ORDERED: *HR* PHENYLEPHRINE 1,000 MCG/10 ML SYRINGE IVP ONE (13:07)
[2018-06-14] MEDS ORDERED: Lidocaine -MPF 4% 5 ML AMPUL ONE (13:23)
[2018-06-14] MEDS ORDERED: Ondansetron 4 MG/2 ML VIAL ONE (13:23)
[2018-06-14] MEDS ORDERED: *HR* Remifentanil 1 MG VIAL IVP ONE (13:23)
[2018-06-14] MEDS ORDERED: Dexamethasone 4 MG/ML VIAL ONE (13:23)
[2018-06-14] MEDS ORDERED: Lidocaine -MPF 2% 2 ML VIAL ONE (13:23)
[2018-06-14] MEDS ORDERED: *HR* Succinylcholine 200 MG/10 ML VIAL IVP ONE (13:23)
[2018-06-14] MEDS ORDERED: *HR* FentaNYL (PF) 100 MCG/2 ML VIAL ONE (13:23)
[2018-06-14] MEDS ORDERED: *HR* Propofol 200 MG/20 ML VIAL IVP ONE (13:23)
[2018-06-14] MEDS ORDERED: *HR* Midazolam HCl 2 MG/2 ML VIAL ONE (13:23)
[2018-06-14] MEDS ORDERED: EPHEDrine 50 MG/ML VIAL ONE (13:25)
[2018-06-14] MEDS ORDERED: Ondansetron 4 MG/2 ML VIAL IVP ONE (13:36)
[2018-06-14] MEDS ORDERED: *HR* Promethazine 25 MG/ML VIAL IVP PRN (13:36)
[2018-06-14] MEDS ORDERED: Dexamethasone 4 MG/ML VIAL IVP ONE (13:36)
[2018-06-14] MEDS ORDERED: *HR* Labetalol 20 MG/4 ML SYRINGE IVP PRN ×2 (13:36→18:07)
[2018-06-14] MEDS ORDERED: Bacitracin 50,000 UNIT, Polymyxin B Sulfate 500,000 UNIT, Sodium Chloride IRRigation 1,... IR ONE (13:45)
--- NOTE | 2018-06-14 14:38 | Orthopedic Operative Note ---
Date of procedure: 06/14/18 Pre-op diagnosis: Thoracic stenosis, leg weakness, gait impairment Post-op diagnosis: same Operation/Findings: Thoracic laminectomy T10-T11: The patient was brought to the operative theater where he underwent general endotracheal anesthesia. He was given antibiotics prior to the start of the procedure. Compression boots and stockings were used for deep vein thrombosis prophylaxis. The patient was placed prone on a Shan table. The back was prepped and draped in the usual sterile fashion. An incision was marked and centered over the T10-T11 interspaces in the midline. We used Bovie cautery to make an incision and then this incision was deepened through the lumbar fascia. Bovie cautery and Harris elevators were used to reflect the paraspinal musculature to the lateral extent of the T10-T11 facet joints bilaterally. Sherri clamps were placed over the spinous processes of T10 and T11 and an intraoperative lateral fluorograph was obtained. A discusssion was held between the radiologist and surgeon who both confirmed we were at the correct operative level. We then removed the supraspinous and interspinous ligaments between T10 and T11 and subsequently removed the ligamentum flavum flavum from its origin on the distal undersurface of the T10 lamina. The ligamentum flavum was noted to be quite hypertrophied as well as the facets were hypertrophied. We performed a laminectomy of T10 including undercutting of the facets to decompress the lateral recesses. We decompressed distally to the proximal portion of the T11 lamina After the decompression was complete we checked the foramen and central canal and they were found to be free and patent. We could clearly visualize the spinal cord and lateral recesses. We copiously irrigated the wound and then closed the wound in layers with 1 Vicryl for the fascia, 2-0 Vicryl for the subcutaneous tissue, and Dermabond was used for skin closure. Sterile dressings were placed over the wound, the patient was turned supine in a hospital bed, and was extubated in the operative theater. All sponge needles and instrument counts were correct at the end of the procedure. The patient tolerated the procedure well without complications. Anesthesia: GETA Surgeon: Otis Elliott Jr Was there an nurses medical assistants phlebotomists present: No Estimated blood loss (cc): 30 Specimen: None Condition: stable Disposition: PACU
[2018-06-14] MEDS: *HR* HYDROmorphone (PF) 1 MG/ML SYRINGE IVP PRN ×4 (15:00→15:36)
[2018-06-14] MEDS ORDERED: Ketorolac 30 MG/ML VIAL IVP ONE (15:10)
[2018-06-14] MEDS ORDERED: Ketorolac 30 MG/ML VIAL IM ONE (15:11)
[2018-06-14] MEDS ORDERED: *HR* OxyCODONE Immed Rel 5 MG TABLET PO ONE (16:01)
--- NOTE | 2018-06-14 16:36 | Anesthesia Evaluation Post Op ---
Date of Encounter: 06/14/18 Time of Encounter: 16:35 - Discharge PostOp Status: Transfer Patient to floor (Patient's vital signs have been reviewed. Patient is stable postoperatively and has adequately recovered from anesthesia. Patient is determined to have stable airway patency and respiratory function including respiratory rate and oxygen saturation. Patient has a stable heart rate, blood pressure and adequate hydration. Patients mental status is acceptable. Patients temperature is appropriate. Pain and nausea are adequately controlled.)
[2018-06-14] MEDS ORDERED: Ondansetron 4 MG/2 ML VIAL IVP PRN (16:47)
[2018-06-14] MEDS ORDERED: Naloxone 0.4 MG/ML INJ IVP PRN (16:47)
[2018-06-14] MEDS ORDERED: *HR* HYDROcodone/Acet 5/325 mg TABLET PO PRN (16:47)
[2018-06-14] MEDS ORDERED: Ringers Solution, Lactated 1,000 ML IVC SCH (16:47)
[2018-06-14] MEDS ORDERED: Acetaminophen 325 MG TABLET PO PRN (16:47)
[2018-06-14] MEDS ORDERED: Ringers Solution, Lactated 1,000 ML ONE (16:50)
[2018-06-14] MEDS ORDERED: *HR* Dextrose 50 % in Water (Syg) 50 ML SYRINGE IVP PRN (18:10)
[2018-06-14] MEDS ORDERED: D5% in Water 1,000 ML IVC PRN (18:10)
[2018-06-14] MEDS ORDERED: Dextrose Gel 15 GM/37.5 ML TUBE PO PRN ×2 (18:10)
[2018-06-14] MEDS ORDERED: Insulin LISPRO 300 UNITS/3 ML VIAL SQ SCH (21:00)
--- NOTE | 2018-06-15 07:06 | Orthopedics Progress Note ---
Date of Encounter: 06/15/18 Time of Encounter: 07:06 Subjective Interval history: Patient was seen this morning doing well without complaints. Afebrile vital signs stable. Neurovascularly intact Dressing clean dry and intact Calves nontender Assessment and plan: Continue with postoperative care Plan for discharge today Objective Vital signs: Vital Signs Temp Pulse Resp BP Pulse Ox 06/15/18 03:57 97.9 F 75 15 134/78 95 06/15/18 00:15 97.0 F L 98 17 124/80 94 06/14/18 19:26 98 F 102 16 134/78 06/14/18 19:20 98 F 102 16 134/78 97 06/14/18 18:32 98 F 111 15 128/78 97 06/14/18 18:14 99.1 F 111 16 128/84 95 06/14/18 17:30 97.8 F 99 18 136/85 97 06/14/18 17:01 97.7 F 104 16 118/81 94 06/14/18 16:53 88 18 130/88 95 06/14/18 16:43 98.1 F 92 18 120/80 94 06/14/18 16:33 96 18 110/83 96 06/14/18 16:23 97 18 118/87 95 06/14/18 16:13 97.6 F 103 18 127/80 94 06/14/18 16:03 95 18 124/80 93 06/14/18 15:53 96 18 138/82 94 06/14/18 15:43 97.8 F 95 22 128/84 96 06/14/18 15:33 103 16 129/82 96 06/14/18 15:23 107 18 133/86 94 06/14/18 15:13 97.9 F 105 20 131/90 92 06/14/18 15:03 107 20 139/96 97 06/14/18 14:53 116 18 143/85 92 06/14/18 14:43 98.0 F 116 16 134/83 100 Intake and Output 06/14/18 06/14/18 06/15/18 15:59 23:59 07:59 Intake Total 250 / 250 1900 / 1900 Output Total 30 / 30 25 / 25 Balance -30 / -30 225 / 225 1900 / 1900 Intake: IV Fluids 100 / 100 1100 / 1100 Lactated Ringers 1,000 ML @ 100 1000 / 1000 mls/hr IVC .Q10H [facility] Rx#: [id number] Ancef 2,000 MG In 0.9 % Sodium 100 / 100 100 / 100 Chloride 100 ML @ 200 mls/hr IVPB Q8HR JAV[facility] Rx#:[id number] Oral 150 / 150 800 / 800 Output: Urine 25 / 25 Estimated Blood Loss 30 / 30 Other: # Voids 1 1 Weight 126.2 kg Blood Glucose* 307 Patient Weight 06/15/18 23:59 Weight 126.2 kg - Labs CBC & BMP: 06/13/18 05:27 06/13/18 05:27 Labs: Abnormal lab results PT 12.3 Seconds (9.4-12.1) H 06/13/18 05:27 Glucose 151 mg/dL (70-105) H 06/13/18 05:27 POC Glucose 166 mg/dL (70-99) H 06/14/18 08:08 Hemoglobin A1c 7.3 % (-5.6) H 06/14/18 05:27 Consult Discharge Plan - Plan Referrals: Richi Vergara MD [Family Provider] - Sadia Strong CNP [Primary Care Provider] -
[2018-06-15] MEDS ORDERED: Insulin LISPRO 300 UNITS/3 ML VIAL SQ SCH (07:30)
[2018-06-15 07:53] VITALS: BP 125/75
[2018-06-15] MEDS ORDERED: Loratadine 10 MG TABLET PO SCH (09:00)
[2018-06-15] MEDS ORDERED: Lisinopril 20 MG TABLET PO SCH (09:00)
[2018-06-15] MEDS ORDERED: amLODIPine 5 MG TABLET PO SCH (09:00)
--- NOTE | 2018-06-15 10:00 | Discharge Summary ---
- NOTES TO OUTPATIENT PROVIDER Notes to Outpatient Provider: Patient was admitted for severe T10-11 spinal stenosis and underwent laminectomy on 06/14 by spine surgery uneventfully. He will be discharged on PRN analgesics and follow-up with spine surgery next week. Of note, his A1c was noted to be elevated at 7.3 and he will probably benefit from metformin as an outpatient. Orders not resulted at time of discharge: Pending orders 06/14/18 XR thoracic spine 1V [XR] Routine Date of Encounter: 06/15/18 Time of Encounter: 08:00 - Discharge Diagnosis (1) Central stenosis of spinal canal Priority: Primary Status: Acute (2) Pre-operative cardiovascular examination Priority: Secondary Status: Acute (3) Diabetes Priority: Secondary Status: Acute Qualifiers: Diabetes mellitus type: type 2 Diabetes mellitus skilled nursing insulin use: without skilled nursing use Diabetes mellitus complication status: with unspecified complications Qualified Code(s): E11.8 - Type 2 diabetes mellitus with unspecified complications (4) Hypertension Priority: Secondary Status: Acute Qualifiers: Hypertension type: essential hypertension Qualified Code(s): I10 - Essential (primary) hypertension (5) DVT prophylaxis Priority: Secondary Status: Acute Hospital course: Mr. Irene is a 58 year old male with Hx of HTN was admitted for severe T10-11 spinal stenosis and underwent laminectomy on 06/14 by spine surgery uneventfully. He will be discharged on PRN analgesics and follow-up with spine surgery next week. Of note, his A1c was noted to be elevated at 7.3 and he will probably benefit from metformin as an outpatient. Discharge discussed with: patient, family - Time Spent with Patient Total time spent providing and/or coordinating discharge services: Greater than 30 minutes - Discharge Medications Prescriptions: HYDROcodone/Acet 5/325 mg [[place] 5-325 mg] 1 tab PO Q8H PRN 3 Days #12 tablet PRN Reason: Breakthrough Pain Home Medications: Amlodipine Besylate/Benazepril [Lotrel 10-20 mg Capsule] 1 cap PO DAILY [History] Cyclobenzaprine [Flexeril] 5 - 10 mg PO BID PRN 06/12/18 [History] Loratadine [Claritin] 10 mg PO DAILY 06/12/18 [History] Naproxen 500 mg PO BID 06/12/18 [History] HYDROcodone/Acet 5/325 mg [[place] 5-325 mg] 1 tab PO Q8H PRN 3 Days #12 tablet [Rx] Allergies/Adverse Reactions: 3 Allergy/AdvReac Type Severity Reaction Status Date / Time No Known Allergies Allergy Verified 06/12/18 22:20 Date of admission: 06/14/18 13:27 Primary care physician: Sadia Strong CNP Consults: 06/14/18 16:47 Consult to Nurse Navigator [CONS] Routine Comment: spine navigator Consult to Physical Therapy [CONS] Routine Comment: Evaluate, develop and implement POC Reason for Consult: Postoperative rehabilitation Does patient have active BEDREST order?: No Is patient medically & hemodynamically stable?: Yes Patient assessed for mobility or mobilized this visit?: No - Constitutional Vitals: Temp Pulse Resp BP Pulse Ox 97.6 F 98 16 125/75 97 06/15/18 07:52 06/15/18 07:52 06/15/18 07:52 06/15/18 07:52 06/15/18 07:52 General appearance: Present: cooperative, A&O X 3, pleasant, no acute distress, answers questions appropriately Exam: General: Alert and oriented, not in acute distress. HEENT:EOM, pupils equal, round and reactive. Cardiovascular:Normal S1 & S2, No JVD. Pulse regular. Lungs: clear to auscultation, no wheezes/rales Abdomen:Soft, non-tender, no rigidity. Extremities:No deformity or swelling MSK: dressing dry and clean Neurological: CN II-XII intact, subjective weakness of R LE but otherwise 5/5 in power in other limbs. Paresthesia over L2-4 dermatomes noted on R LE. - Patient Status Disposition: Home, Self-Care Condition: Fair Functional capacity at discharge: independent ambulation - Discharge Instructions Instructions: Diabetes Mellitus Type 2 in Adults (DC), Chronic Hypertension (DC ) Follow Up With: Richi Vergara MD [Family Provider] - Sadia Strong CNP [Primary Care Provider] - Otis Elliott Jr, MD [Partnered Physician] - - Diet and Activity Activity: as per physical therapy Diet: diabetic diet
[2018-06-15] MEDS: *HR* OxyCODONE Immed Rel 5 MG TABLET PO PRN (11:07)
== END 2018-06-15 11:14 | disposition home or self-care (01) | DRG 516 ==
LOC: EMEROOARM 15:38 → 3NENU 15:38 → SUATTDRO 22:38 → 3NENU 23:12
PROVIDERS: ADMIT Internal Medicine; ATTEND Internal Medicine

== ENCOUNTER 2021-01-11 10:37 | Inpatient (IN) ==
[2021-01-11] MEDS ORDERED: *HR* Heparin 5,000 UNIT/ML VIAL IVP PRN ×2 (10:43)
[2021-01-11] MEDS ORDERED: *HR* Ticagrelor 90 MG TABLET PO ONE (10:43)
[2021-01-11] MEDS ORDERED: 0.9 % Sodium Chloride 1,000 ML IVC ONE (10:43)
[2021-01-11] MEDS ORDERED: *HR* Heparin 5,000 UNIT/ML VIAL IVP ONE (10:43)
[2021-01-11] MEDS ORDERED: Morphine Sulfate 2 MG/ML SYRINGE ONE (10:44)
[2021-01-11] MEDS ORDERED: *HR* Heparin 5,000 UNIT/ML VIAL ONE (10:45)
[2021-01-11] MEDS ORDERED: Heparin 25,000UNIT/250ML 1/2NS 25,000 UNIT/250 ML IV.SOLN IVC SCH (10:45)
[2021-01-11] MEDS ORDERED: *HR* Ticagrelor 90 MG TABLET ONE (10:45)
[2021-01-11] MEDS ORDERED: *HR* Midazolam HCl 2 MG/2 ML VIAL ONE (10:47)
[2021-01-11] MEDS ORDERED: ISOVUE-370 200 ML INFUS..BTL ONE (10:48)
[2021-01-11] MEDS ORDERED: Heparin 1,000 UNITS/500 mL 500 ML ONE (10:48)
[2021-01-11] MEDS ORDERED: 0.9 % Sodium Chloride 2,000 ML ONE (10:48)
[2021-01-11] MEDS ORDERED: Nitroglycerin 1,000 MCG/5 ML VIAL IV ONE (10:48)
[2021-01-11] MEDS ORDERED: *HR* FentaNYL (PF) 100 MCG/2 ML VIAL ONE (10:48)
[2021-01-11] MEDS ORDERED: *HR* Heparin 10,000 UNIT/10 ML VIAL ONE (10:48)
[2021-01-11] MEDS ORDERED: 0.9 % Sodium Chloride 1,000 ML ONE ×2 (10:49→10:59)
[2021-01-11] MEDS ORDERED: *HR* Bivalirudin 250 MG VIAL IVC ONE ×2 (10:53→11:16)
[2021-01-11] MEDS ORDERED: Perflutren Lipid Microsphere 1.3 ML in 0.9 % Sodium Chloride 8.7 ML IVP PRN (11:00)
[2021-01-11 11:03] LABS: Basophils % 0.2 %; Eosinophils # 0.2 K/mcL (0.0-0.6); Eosinophils % 1.5 %; Hematocrit 42.9 % (37.5-50.1); Hemoglobin 14.1 g/dL (12.9-16.9); Immature Granulocytes % 0.5 % (0-4); Lymphocytes # 1.7 K/mcL (0.6-4.6); Mean Corpuscular HGB Conc 32.9 g/dL (31.6-35.5); Mean Corpuscular Hemoglobin 32.3 pg (28.0-33.3); Mean Corpuscular Volume 98.4 fL (83.0-100.0); Mean Platelet Volume 10.1 fL (9.4-12.4); Monocytes # 0.8 K/mcL (0.0-1.3); Monocytes % 6.8 %; Neutrophils # 9.3 K/mcL (1.6-8.9); Platelet Count 257 K/mcL (140-400); Red Blood Count 4.36 M/mcL (4.19-5.50); Red Cell Distribution Width 12.4 % (11.5-14.5); White Blood Count 12.1 K/mcL (4.3-11.1)
[2021-01-11] MEDS ORDERED: *HR* Atropine Sulfate 1 MG/10 ML SYRINGE ONE ×2 (11:15→16:19)
[2021-01-11 11:17] LABS: INR 1.1; Prothrombin Time 12.3 Seconds (9.4-12.1)
[2021-01-11 11:19] LABS: Activated Partial Thrombo Time 23.2 Seconds (26.0-36.0)
[2021-01-11 11:26] LABS: BUN/Creatinine Ratio 8 (6-26); Blood Urea Nitrogen 10 mg/dL (8-23); Calcium 9.6 mg/dL (8.6-10.3); Carbon Dioxide 27 mEq/L (23-29); Chloride 103 mEq/L (98-107); Glucose 229 mg/dL (70-105); Magnesium 1.8 mg/dL (1.6-2.6); Osmolality,Calculated 294 (280-300); Potassium 3.5 mEq/L (3.5-5.1); Sodium 139 mEq/L (136-145); Troponin I 1.96 ng/mL (< 0.04); eGFR For African Americans > 60 (> 60); eGFR For Non-African Americans 59 (> 60)
[2021-01-11] MEDS ORDERED: Nitroglycerin 0.4 MG TAB.SUBL SL PRN (12:19)
[2021-01-11] MEDS ORDERED: *HR* Dextrose 50 % in Water (Vial) 50 ML VIAL IVP PRN (12:19)
[2021-01-11] MEDS ORDERED: D5% in Water 1,000 ML IVC PRN (12:19)
[2021-01-11] MEDS ORDERED: Dextrose Gel 15 GM/37.5 ML TUBE PO PRN ×2 (12:19)
[2021-01-11] MEDS ORDERED: 0.9 % Sodium Chloride 1,000 ML IVC SCH (12:30)
[2021-01-11] MEDS ORDERED: Morphine Sulfate 2 MG/ML SYRINGE IVP ONE ×2 (12:40→13:25)
[2021-01-11] MEDS: Gabapentin 300 MG CAPSULE PO SCH ×2 (12:52→20:15)
[2021-01-11] MEDS: Metoprolol XL (24 HR) Succ 25 MG TAB.ER.24H PO SCH (12:52)
[2021-01-11] MEDS ORDERED: *HR* LORazepam 2 MG/ML VIAL IVP ONE ×2 (13:25→15:21)
[2021-01-11] MEDS: Insulin LISPRO 300 UNITS/3 ML VIAL SUBQ SCH (15:56)
[2021-01-11] MEDS: *HR* Ticagrelor 90 MG TABLET PO SCH (20:15)
[2021-01-12 06:19] LABS: Basophils % 0.2 %; Eosinophils # 0.1 K/mcL (0.0-0.6); Eosinophils % 1.1 %; Hematocrit 37.7 % (37.5-50.1); Immature Granulocytes % 0.4 % (0-4); Lymphocytes # 1.3 K/mcL (0.6-4.6); Lymphocytes % 12.1 %; Mean Corpuscular HGB Conc 33.2 g/dL (31.6-35.5); Mean Corpuscular Hemoglobin 32.5 pg (28.0-33.3); Mean Corpuscular Volume 97.9 fL (83.0-100.0); Mean Platelet Volume 10.3 fL (9.4-12.4); Monocytes # 0.9 K/mcL (0.0-1.3); Monocytes % 8.2 %; Neutrophils # 8.3 K/mcL (1.6-8.9); Platelet Count 203 K/mcL (140-400); Red Blood Count 3.85 M/mcL (4.19-5.50); Red Cell Distribution Width 12.5 % (11.5-14.5); White Blood Count 10.7 K/mcL (4.3-11.1)
[2021-01-12 06:25] LABS: Hemoglobin 12.5 g/dL (12.9-16.9)
[2021-01-12 07:24] LABS: Troponin I 14.82 ng/mL (< 0.04)
[2021-01-12 07:25] LABS: BUN/Creatinine Ratio 10 (6-26); Blood Urea Nitrogen 9 mg/dL (8-23); Calcium 9.2 mg/dL (8.6-10.3); Carbon Dioxide 25 mEq/L (23-29); Chloride 104 mEq/L (98-107); Chol/HDL Ratio 5.2 (0-4.9); Cholesterol 131 mg/dL (< 200); Glucose 190 mg/dL (70-105); HDL Cholesterol 25 mg/dL (40-59); LDL Cholesterol,Calculated 85 mg/dL (< 100); Osmolality,Calculated 290 (280-300); Potassium 3.6 mEq/L (3.5-5.1); Sodium 138 mEq/L (136-145); Triglycerides 106 mg/dL (< 150); eGFR For African Americans > 60 (> 60); eGFR For Non-African Americans > 60 (> 60)
[2021-01-12] MEDS: Gabapentin 300 MG CAPSULE PO SCH ×3 (07:32→19:52)
[2021-01-12] MEDS: *HR* Ticagrelor 90 MG TABLET PO SCH ×2 (07:32→19:53)
[2021-01-12] MEDS: Insulin LISPRO 300 UNITS/3 ML VIAL SUBQ SCH ×3 (07:32→16:04)
[2021-01-12] MEDS: Metoprolol XL (24 HR) Succ 25 MG TAB.ER.24H PO SCH (07:32)
[2021-01-12 08:49] LABS: Estimated Average Glucose 148 mg/dl; Hemoglobin A1C 6.8 %
[2021-01-12] MEDS ORDERED: Aspirin 81 MG TAB.CHEW PO SCH (09:00)
[2021-01-12] MEDS ORDERED: lisinopriL 5 MG TABLET PO SCH (09:00)
[2021-01-12] MEDS ORDERED: Fluticasone Propionate Nasal 50 MCG/SPRAY BOTTLE NS PRN (13:10)
[2021-01-12] MEDS ORDERED: D5% in Water 1,000 ML IVC PRN (13:10)
[2021-01-12] MEDS ORDERED: Dextrose Gel 15 GM/37.5 ML TUBE PO PRN ×2 (13:10)
[2021-01-12] MEDS ORDERED: Nitroglycerin 0.4 MG TAB.SUBL SL PRN (13:10)
[2021-01-12] MEDS ORDERED: *HR* Dextrose 50 % in Water (Vial) 50 ML VIAL IVP PRN (13:10)
[2021-01-12] MEDS: *HR* HYDROcodone/Acet 5/325 mg TABLET PO PRN ×2 (17:51→23:51)
[2021-01-13] MEDS: *HR* HYDROcodone/Acet 5/325 mg TABLET PO PRN (05:53)
[2021-01-13] MEDS: Gabapentin 300 MG CAPSULE PO SCH ×2 (07:29→15:38)
[2021-01-13] MEDS: *HR* Ticagrelor 90 MG TABLET PO SCH (07:30)
[2021-01-13] MEDS: Insulin LISPRO 300 UNITS/3 ML VIAL SUBQ SCH ×2 (07:32→12:01)
[2021-01-13] MEDS ORDERED: Metoprolol XL (24 HR) Succ 25 MG TAB.ER.24H PO SCH (09:00)
[2021-01-13] MEDS ORDERED: Aspirin 81 MG TAB.CHEW PO SCH (09:00)
[2021-01-13] MEDS ORDERED: Loratadine 10 MG TABLET PO SCH (09:00)
[2021-01-13] MEDS ORDERED: lisinopriL 5 MG TABLET PO SCH (09:00)
[2021-01-13 10:17] VITALS: BP 126/84
== END 2021-01-13 15:45 | disposition home or self-care (01) | DRG 247 ==
LOC: EMEROOARM 10:37 → ICNU 11:02
PROVIDERS: ADMIT Internal Medicine Interventional Cardiology; ATTEND Internal Medicine Interventional Cardiology